=== PATIENT | female | born 1955 | race Caucasian/White ===

== ENCOUNTER 2024-09-15 06:14 | Observation (INO) ==
--- NOTE | 2024-08-14 10:45 | PAT Medication Instructions ---
Medication Instructions Date of Service August 14, 2024 Home Medications Medication Instructions Recorded Katey Crocker #1 ea 07/10/24 Medication List: calcium 600 mg (as carbonate)-vitamin D3 10 mcg (400 unit) tablet (Calcium 600 + D(3)) 1 tab PO QAM cetirizine 5 mg tablet 5 mg PO QAM coQ10 (ubiquinol) 200 mg capsule 200 mg PO QAM diclofenac sodium 75 mg tablet,delayed release 75 mg PO BID diphenhydramine HCl 25 mg capsule (Benadryl) 25 mg PO HS fluticasone propionate 50 mcg/actuation nasal spray,suspension 1 spray intranasal HS glucosamine sulf dipot chlr,msm,chond 550 mg-C 30 mg-casa 1 mg capsule (Glucosamine Chondroitin) 1 cap PO BID lisinopril 5 mg tablet 5 mg PO QAM mirabegron 25 mg tablet,extended release 24 hr 25 mg PO QAM multivitamin 1 tab PO QAM omeprazole 20 mg tablet,delayed release 20 mg PO HS potassium chloride 10 mEq tablet,extended release 10 meq PO QAM psyllium husk 0.52 gram capsule 0.52 g PO Q OTHER DAY triamterene 75 mg-hydrochlorothiazide 50 mg tablet 1 tab PO QAM vit C 250 mg-vit E 90 mg-zinc 40 mg-copper 1 [id number]-vxmaph capsule (PreserVision AREDS-2) 1 tab PO BID MEDICATION INSTRUCTIONS: ASK your surgeon for instructions diclofenac sodium 75 mg tablet,delayed release 75 mg PO BID STOP taking 2 weeks before surgery glucosamine sulf dipot chlr,msm,chond 550 mg-C 30 mg-casa 1 mg capsule (Glucosamine Chondroitin) 1 cap PO BID coQ10 (ubiquinol) 200 mg capsule 200 mg PO QAM vit C 250 mg-vit E 90 mg-zinc 40 mg-copper 1 [id number] capsule (PreserVision AREDS-2) 1 tab PO BID DO NOT take the morning of surgery potassium chloride 10 mEq tablet,extended release 10 meq PO QAM psyllium husk 0.52 gram capsule 0.52 g PO Q OTHER DAY triamterene 75 mg-hydrochlorothiazide 50 mg tablet 1 tab PO QAM lisinopril 5 mg tablet 5 mg PO QAM calcium 600 mg (as carbonate)-vitamin D3 10 mcg (400 unit) tablet (Calcium 600 + D(3)) 1 tab PO QAM cetirizine 5 mg tablet 5 mg PO QAM mirabegron 25 mg tablet,extended release 24 hr 25 mg PO QAM multivitamin 1 tab PO QAM Take evening before surgery diphenhydramine HCl 25 mg capsule (Benadryl) 25 mg PO HS fluticasone propionate 50 mcg/actuation nasal spray,suspension 1 spray intranasal HS omeprazole 20 mg tablet,delayed release 20 mg PO HS Other Notes Remember: NOTHING TO EAT OR DRINK AFTER MIDNIGHT If you have any questions please call us at [phone] or [phone] or [phone] or [phone]
--- NOTE | 2024-08-25 10:35 | Anesthesiology Consultation ---
Date of Service August 25, 2024 Assessment & Plan (1) Encounter for pre-operative examination: - Infectious disease screening: Per assessment on 08/25/24- No known recent infectious disease contacts. Patient had influenza A 06/2024. Symptoms resolved and patient currently feeling well. - Outpatient joint assessment: Pt currently scheduled for inpatient pathway. If surgeon requests review for outpatient joint pathway, patient is not recommended candidate for outpatient joint program from anesthesia standpoint based on available information. Chart Review Chart Review: Acceptable Risk for Surgery and Patient seen in Pre Admission Testing Teaching & Discussion Pre-Anesthesia Teaching/Discussion Notes: Instructed NPO after midnight before surgery,except medications with 15 cc of water. Medication instructions provided according to the PAT guidelines. History Surgery Operation Date: 09/15/24 10:40 Proposed Procedures p Left Total Knee Arthroplasty - Yandel Menezes MD Height/Weight Height: 5 ft 1 in Weight: 117.6 kg Allergies Allergy/AdvReac Type Severity Reaction Status Date / Time No Known Drug Allergies Allergy Verified 08/12/24 11:17 Medications Home Medications Medication Instructions Recorded Confirmed Last Taken Wheeled Walker #1 ea 07/10/24 07/10/24 Unknown calcium 600 mg (as 1 tab PO [facility] 08/12/24 08/12/24 Unknown carbonate)-vitamin D3 10 mcg (400 unit) tablet (Calcium 600 + D(3)) cetirizine 5 mg tablet 5 mg PO [facility] 08/12/24 08/12/24 Unknown coQ10 (ubiquinol) 200 mg capsule 200 mg PO [facility] 08/12/24 08/12/24 Unknown diclofenac sodium 75 mg 75 mg PO BID 08/12/24 08/12/24 Unknown tablet,delayed release diphenhydramine HCl 25 mg capsule 25 mg PO 08/12/24 08/12/24 Unknown (Benadryl) fluticasone propionate 50 1 spray intranasal 08/12/24 08/12/24 Unknown mcg/actuation nasal spray,suspension glucosamine sulf dipot 1 cap PO BID 08/12/24 08/12/24 Unknown chlr,msm,chond 550 mg-C 30 mg-casa 1 mg capsule (Glucosamine Chondroitin) lisinopril 5 mg tablet 5 mg PO QAM 08/12/24 08/12/24 Unknown mirabegron 25 mg tablet,extended 25 mg PO QA 08/12/24 08/12/24 Unknown release 24 hr multivitamin 1 tab PO QAM 08/12/24 08/12/24 Unknown omeprazole 20 mg tablet,delayed 20 mg PO HS 08/12/24 08/12/24 Unknown release potassium chloride 10 mEq 10 meq PO QAM 08/12/24 08/12/24 Unknown tablet,extended release psyllium husk 0.52 gram capsule 0.52 g PO Q OTHER DAY 08/12/24 08/12/24 Unknown triamterene 75 1 tab PO QAM 08/12/24 08/12/24 Unknown mg-hydrochlorothiazide 50 mg tablet vit C 250 mg-vit E 90 mg-zinc 40 1 tab PO BID 08/12/24 08/12/24 Unknown mg-copper 1 xg-tqnrbh-bftdhz capsule (PreserVision AREDS-2) Past Medical History Medical History Acid reflux Degenerative arthritis of knee Degenerative disc disease Hiatal hernia History of anxiety Hypertension Macular degeneration Morbid obesity Sleep apnea CPAP (compliant) Urinary frequency Exercise / Class Metabolic Activity III < 4 Walking/Shop/Light housework Past Family History Family History Other No family history of adverse response to anesthesia Past Surgical History Surgical History History of appendectomy History of arthroscopy of right knee History of bilateral cataract extraction History of carpal tunnel surgery of left wrist History of section x2 History of cholecystectomy History of colonoscopy History of partial hysterectomy History of tooth extraction Past Anesthesia History No Hx of Anesthesia Complications and No Family Hx of Anesthesia Complications History of PONV No Hx of PONV and No Hx of Motion Sickness Social History Smoking Status: Never smoker Do You Dip or Chew Tobacco: No Hx Alcohol Use: No Hx Substance Use: No substance use type: does not use Review of Systems Patient denies chest pain, shortness of breath, fever, chills, cough, wheezing, palpitations. Physical Exam Vital Signs BP 116/80 P 86 TEMP 98.4 SP02 97%RA RESP 16 Physical Full cervical extension range of motion. Full TMJ range of motion. TMD > 3.5 finger breaths Mallampati Score II Dentition: lower partial Lungs: clear throughout to auscultation Cardiac: regular rate and rhythm, no murmurs noted Spine: normal Carotid arteries: negative bruit Extremities: no LE edema Lab Results Anesthesia Preop Results Results Anesthesia Widget: PT 10.4 Seconds (9.0-12.0) 08/25/24 PTT 24 Seconds (21-31) 08/25/24 INR 1.0 (0.9-1.1) 08/25/24 Blood Type A Positive 08/25/24 Antibody Screen NEGATIVE 08/25/24 Testing Laboratory Results 08/18/24 WBC 6.48 H/H 12.8/41.2 PLATELETS 253 TSH 3.66 MAGNESIUM 2.2 SODIUM 143 POTASSIUM 4.4 CHLORIDE 104 CO2 28 BUN 31 CREATININE 0.7 GLUCOSE 96 Electrocardiogram Date: 08/25/24 NSR at 81bpm. Low voltage QRS. PRWP, consider anterior [place] vs lead placement vs LVH. Chest X-Ray Date: 08/25/24 FINDINGS: Heart size and pulmonary vasculature are normal. No effusion or consolidation. IMPRESSION: No acute findings.
--- NOTE | 2024-09-13 09:38 | History & Physical Report ---
Date of Service September 13, 2024 Assessment & Plan (1) Degenerative arthritis of knee, bilateral: 69-year-old female with advanced bilateral knee DJD windswept knees. The left side is more symptomatic than the right. She got terrible disease. She has tried to lose weight with some success but had difficulty due to her limited mobility. Severe right leg proceed with knee replacement. Plan when to take her the option to the left total knee replacement. The risks Mente this procedure explained and she understands. Informed consent is obtained. He has a pretty significant valgus deformity to his knee is at increased risk for peroneal nerve palsy. Will do all we can to prevent that. Will likely use a short cemented stem and may need a PS plus insert due to her MCL laxity. Will plan on using aspirin for DVT prophylaxis. She is planned be discharged to home with [facility] program. History of Present Illness Chief Complaint: . Bilateral knee pain discomfort left side greater than the right. Primary Care Provider: NO PCP . The patient is a 69-year-old female from [place] who presents specifically for surgical treatment of her knees. She has a 5+ year history of increasing bilateral knee pain discomfort which becomes become more debilitating over time. She has attempted weight loss and lost about 50 pounds over the past couple years but still could not find somebody to do surgery on her knees. Pains become more debilitating. The left knee is worse than the right. She has trouble walking any longer than a block due to the pain. She would like to have her knees fixed. She does have a history of knee arthroscopy done by Dr. Tam on this left knee 10 years ago. Allergies Allergy/AdvReac Type Severity Reaction Status Date / Time No Known Drug Allergies Allergy Verified 08/12/24 11:17 Home Medications Medication Instructions Recorded Confirmed Type Wheeled Walker #1 ea 07/10/24 07/10/24 Rx calcium 600 mg (as 1 tab PO QAM 08/12/24 08/12/24 History carbonate)-vitamin D3 10 mcg (400 unit) tablet (Calcium 600 + D(3)) cetirizine 5 mg tablet 5 mg PO QAM 08/12/24 08/12/24 History coQ10 (ubiquinol) 200 mg capsule 200 mg PO QAM 08/12/24 08/12/24 History diclofenac sodium 75 mg 75 mg PO BID 08/12/24 08/12/24 History tablet,delayed release diphenhydramine HCl 25 mg capsule 25 mg PO HS 08/12/24 08/12/24 History (Benadryl) fluticasone propionate 50 1 spray intranasal HS 08/12/24 08/12/24 History mcg/actuation nasal spray,suspension glucosamine sulf dipot 1 cap PO BID 08/12/24 08/12/24 History chlr,msm,chond 550 mg-C 30 mg-casa 1 mg capsule (Glucosamine Chondroitin) lisinopril 5 mg tablet 5 mg PO QAM 08/12/24 08/12/24 History mirabegron 25 mg tablet,extended 25 mg PO QAM 08/12/24 08/12/24 History release 24 hr multivitamin 1 tab PO QAM 08/12/24 08/12/24 History omeprazole 20 mg tablet,delayed 20 mg PO HS 08/12/24 08/12/24 History release potassium chloride 10 mEq 10 meq PO QAM 08/12/24 08/12/24 History tablet,extended release psyllium husk 0.52 gram capsule 0.52 g PO Q OTHER DAY 08/12/24 08/12/24 History triamterene 75 1 tab PO QAM 08/12/24 08/12/24 History mg-hydrochlorothiazide 50 mg tablet vit C 250 mg-vit E 90 mg-zinc 40 1 tab PO BID 08/12/24 08/12/24 History mg-copper 1 is-kliulm-rmapgw capsule (PreserVision AREDS-2) Past Med/Surg History Problem List Encounter for pre-operative examination Degenerative arthritis of knee, bilateral Medical History Morbid obesity Hiatal hernia Degenerative arthritis of knee Degenerative disc disease Urinary frequency Acid reflux Macular degeneration History of anxiety Hypertension Sleep apnea CPAP (compliant) Surgical History History of section x2 History of carpal tunnel surgery of left wrist History of arthroscopy of right knee History of colonoscopy History of partial hysterectomy History of appendectomy History of cholecystectomy History of tooth extraction History of bilateral cataract extraction Family History Other No family history of adverse response to anesthesia Social History Smoking Status: Never smoker Second Hand Exposure: No; Do You Dip or Chew Tobacco: No; Tobacco Cessation Education Requested by Patient: No Hx Alcohol Use: No Hx Substance Use: No Preferred Language: [place]se Communication Ability: Effective First Officer And Flight Instructor Required: No Beliefs That Will Affect Care: None Current Living Situation: Spouse Other Information That Helps Us Care for You: No Feels Safe at Home: Yes Safety Concerns: Feels Safe At This Time Assistive Devices: CPAP, Denture - Lower, Glasses and Walker Assistive Devices Comment: partial lower denture Review of Systems All systems reviewed & are unremarkable except as noted in HPI & below. Physical Exam . Physical examination was pleasant to moderately obese female looks to be in reasonably good health. Examination of both knees reveal patient to ambulates with severe valgus deformity to her left knee. This left knee goes into more valgus with weightbearing. Her range of motion is about 10 degrees short of full extension to 110 degrees of flexion on the side. No particular pain with hip motion. She is neurologically intact. Examination the right knee reveals fairly neutral alignment. She is tender the medial joint line. Small knee effusion. Range of motion is 5-1 20. No instability. Constitutional WD/WN, vitals as above Respiratory normal respiratory effort, lungs clear to auscultation Cardiovascular RRR, no murmur, no edema Gastrointestinal (Abdomen) normal bowel sounds, soft, nontender, no hepatosplenomegaly Musculoskeletal no cyanosis or clubbing, extremities motor strength 5/5 Results & Data Results & Data Laboratory Results . Diagnostic Findings . PG Care Time/CCT Total # of Minutes Spent Total Time Spent with Patient: Total time spent is greater than 50% in coordination of care (as documented) at patient's floor/unit and/or counseling patient: Coding Level of Care Code None Diagnoses Degenerative arthritis of knee, bilateral M17.0
[2024-09-15] MEDS ORDERED: BUPIVACAINE 0.5 % 5 MG/1 ML PF 10ML VIAL ONE (06:39)
[2024-09-15] MEDS ORDERED: BUPIVACAINE 0.25% PF 30 ML VIAL ONE (06:40)
--- NOTE | 2024-09-15 06:45 | History & Physical Bridge Note ---
Date of Service September 15, 2024 History & Physical Bridge Note I have examined the patient, reviewed the History & Physical and in the interval since the performance of the History & Physical I have noted the following changes of clinical significance: no changes noted
[2024-09-15] MEDS: ACETAMINOPHEN 500 MG TAB PO SCH ×2 (06:55→14:22)
[2024-09-15] MEDS: FAMOTIDINE 20 MG TAB PO SCH (06:55)
[2024-09-15] MEDS: METOCLOPRAMIDE HCL 10 MG TABLET PO SCH (06:55)
[2024-09-15] MEDS: LR 60ML/HR IV SCH (06:55)
[2024-09-15] MEDS: CeleBREX 200 MG CAP PO SCH (06:55)
[2024-09-15] MEDS: dexAMETHasone**PF** 10 MG/ML VIAL IV SCH (07:05)
[2024-09-15] MEDS: LR 500ML BOLUS, THEN 15ML/HR IV SCH (07:05)
[2024-09-15] MEDS ORDERED: DexMEDEtomidine HCL IV 100 MCG/ML VIAL IV ONE (07:36)
[2024-09-15] MEDS ORDERED: MIDAZOLAM HCL 1 MG/ML 2ML VIAL ONE (07:36)
[2024-09-15] MEDS ORDERED: ONDANSETRON INJ 2 MG/ML 2 ML VIAL ONE (07:36)
[2024-09-15] MEDS ORDERED: LIDOCAINE 2% 2 ML VIAL/AMP(20MG/ML) INFIL ONE (07:36)
[2024-09-15] MEDS ORDERED: KETAMINE HCL 10MG/ML SYR ONE (07:36)
[2024-09-15] MEDS ORDERED: PROPOFOL IV EMULSION 10 MG/ML 20 ML VIAL IV ONE ×2 (07:36→08:15)
[2024-09-15] MEDS ORDERED: ONDANSETRON INJ 2 MG/ML 2 ML VIAL IV PRN ×2 (08:32→12:54)
[2024-09-15] MEDS ORDERED: ePHEDrine sulfate 50 MG/ML AMP IV PRN (08:32)
[2024-09-15] MEDS ORDERED: ATROPINE SULFATE 0.1 MG/ML 10ML SYR IV PRN (08:32)
[2024-09-15] MEDS ORDERED: ROCURONIUM BROMIDE 10 MG/ML 5 ML VIAL IV ONE (09:32)
[2024-09-15] MEDS: ceFAZolin 2000MG 2,000 MG/15 ML SYR IV SCH ×2 (09:33→17:09)
[2024-09-15] MEDS ORDERED: fentaNYL citrate PF 100 MCG/2 ML VIAL ONE ×2 (09:34→10:17)
[2024-09-15] MEDS: ROPIV 0.5% 246mg, Ketorolac 30mg, EPINEPHrine 0.5mg in NSS INFIL SCH (10:14)
[2024-09-15] MEDS: ORTHO JOINT ANESTHETIC ONE (10:15)
[2024-09-15] MEDS: VANCOMYCIN HCL 1000MG/20ML VIAL ONE (10:15)
[2024-09-15] MEDS: TRANEXAMIC ACID 1,000 MG **IV Intra-op IV SCH (10:33)
[2024-09-15] MEDS ORDERED: NEOSTIGMINE METHYLSULFATE 1 MG/ML 10ML VIAL ONE (10:50)
[2024-09-15] MEDS ORDERED: GLYCOPYRROLATE 0.2 MG/ML VIAL ONE (10:50)
--- NOTE | 2024-09-15 11:36 | Operative Report ---
PG Post Operative Report Pre & Post Diagnosis Operation Date: 09/15/24 08:50 Pre-Op Diagnosis: Left Knee Osteoarthritis Post-Op Diagnosis: Left Knee Osteoarthritis I identified the patient and participated in the time-out.: Yes Procedure Operation Date: 09/15/24 08:50 Actual Procedures p Left Total Knee Arthroplasty(Left) - Yandel Menezes MD Surgeon Yandel Menezes MD Saturation Equipment Operator Malik Johnson PA-C Estimated Blood Loss 50 Findings Consistent with Post-Op Diagnosis Operative findings were advanced left knee DJD. She had extensive grade 4 [id number] disease particularly in the lateral compartment. She also has advanced patellofemoral disease. She had multiple loose bodies and multiple large osteophytes around the patella and lateral aspect of her knee. Large soft tissue envelope. Specimens Left knee sent for pathology. Anesthesia Type General Regional Complications none Disposition Accompanied Patient To Recovery: No Indications Patient is a 69-year-old female whose had a long history of gradual progressive left knee pain discomfort and deformity. She has been through extensive conservative treatment which became less successful over time. She became markedly debilitated by her knee pain discomfort and instability. X-rays show advanced knee DJD with multiple loose bodies and osteophyte formation. She elected proceed with total knee arthroplasty. Description of Procedure Operative implants consist of: 1 Biomet Vanguard size 62.5 left posterior stabilized femoral component. 2. Biomet size 67 tibial tray with a 10 mm x 80 mm cemented extension. 3. 12 mm PS plus polyethylene insert. 4. 31 x 8 all poly patella. The patient was taken the op room, identified, placed on the operating table in the supine position. All conductors were appropriately padded. IV antibiotics fibra anesthesia team. A spinal anesthetic and adductor canal block had been attempted in the holding area. The spinal was unsuccessful. A general anesth etic was therefore implemented. A Aggarwal catheter was placed in sterile fashion. A left thigh tent was then placed. The left lower extremity was then prepped and draped in the usual sterile fashion. The left leg was elevated and exsanguinated with use of an Esmarch and a turn was placed at 300 mmHg. An anterior approach left knee was then performed to longitudinal incision centered over the patella. Sharp dissection Through subcutaneous tissue down the extensor mechanism. A medial parapatellar arthrotomy incision was made. Some subperiosteal dissection was carried out medially. The fat pad was dissected from Neath patella tendon. Lateral patellofemoral ligament was released. Patella subluxated laterally and the knee was flexed. The osteophytes taken off distal femur. The ACL and PCL released from distal femur the tibia subluxated anteriorly. The external treatment LYMErix was then placed on the anterior face the tibia and adjusted 12 mm medially. Proximal tibial cut was made remove about 3 to 4 mm of bone from medial side. This cut almost essentially flush with the most efficient aspect of the posterior lateral tibial plateau. The tibia sized to a size 67. The tibia was then prepared with a drill and the stem punch. I then hand reamed up to a size 12 for the longer cemented stem. We elect to place a cemented stem due to her osteopenia, severe deformity, medial laxity. The trial stem was assembled and implemented and placed and fit nicely. Attention drawn the femur. The distal femur examined the sharp drill. Intramedullary canal was suction. A left 5 degree valgus cutting guide was placed through the distal femoral cutting block was pinned in place. This femoral cut was made to take an additional 3 mm of bone off distal femur. The femur was then sized to a size 62.5. The AP cutting block was pinned parallel to the epicondylar axis which was 6 degrees of external rotation. The anterior cut, anterior chamfer, posterior cut, posterior chamfer cuts were made. The box cutting guide was placed with just slight lateral and the box cut was made. The knee was flexed. The remnants of the medial and lateral menisci were excised. The osteophytes taken off the posterior aspect of femur. I did have to release the popliteus in order to equalize the flexion gap. The knee was then trialed and the 12 mm insert fit most appropriately. I did elect to place a PS plus insert due to her MCL laxity although her knee was quite stable after releases. Attention then drawn the patella. The patella was cleaned of all soft tissue. Patella thickness measured about 20 mm in thickness was cut down to 12. Was sized to a size 31 patella. The lug holes were drilled for 31 patella. Lateral osteophytes removed. Patella button was placed. Knee was taken through range of motion and the patella tracked nicely with no thumbs test. Attention was then drawn toward placement permanent components. All trial components were removed. Bone plug was placed into this femur limit blood loss. Double batch Palacos G cement was mixed. I did add an additional gram of vancomycin to 2 her cement due to her morbid obesity and multiple medical issues. A Biomet Vanguard size 62.5 left posterior Byce femoral component, size 67 tibial tray with an 80 mm x 10 mm extension, a 12 mm PS plus insert, and a 31 x 8 all poly patella then cemented in place. The knee was brought out in full extension till cement hardened. Final cement check was then performed. The pericapsular tissues were injected with total of 100 cc of Ortho mix. Patient did receive 1 g tranexamic acid. The tourniquet was let down for final tourniquet time of 60 minutes. Hemostasis surges electrocautery. Extensor Meclomen closed with combination 1 PDS suture and 1 Vicryl suture in a [id number]-[id number] fashion. Extensor Meclomen checked found be intact and subcutaneous tissue was then closed with 2 Dexon suture in a buried interrupted fashion skin was closed skin rosalee. Leg was then cleaned and dried and sterile dressed with Xeroform, 4 fours, sterile cast padding, Vinny bandage were applied. Patient then transferred to the recovery room in stable condition. Patient tolerated procedure well and there were no complications. Malik Johnson, my physician assistant store director, was present for the entire procedure. His assistance was essential and required for appropriate patient positioning, prepping and draping, surgical exposure, performing the technical details of the operation, placement the implants, closure of the wound, and placement of the sterile bandage. I attest to the content of the Intraoperative Record and any orders documented therein. Any exceptions are noted below.
--- NOTE | 2024-09-15 11:51 | XRay Report ---
XR knee LT 1 or 2V routine CLINICAL HISTORY: Surgical Post Op COMPARISON: 07/10/2024 FINDINGS: Left knee prosthesis shows no hardware complication. There is expected soft tissue gas. Sk in rosalee are present. IMPRESSION: Unremarkable postoperative exam. ACT 112: Negative or not required by law. Electronically signed by: Carlos Campos M.D. 09/15/2024 11:49 AM
[2024-09-15] MEDS: fentaNYL citrate PF 100 MCG/2 ML VIAL IV PRN (12:02)
[2024-09-15] MEDS ORDERED: bisacodyL 10 MG SUPP PR PRN (12:54)
[2024-09-15] MEDS ORDERED: HYDROmorphone INJ 0.5 MG/0.5 ML SYR IV PRN (12:54)
[2024-09-15] MEDS ORDERED: METOCLOPRAMIDE HCL INJ 5 MG/ML 2 ML VIAL IV PRN (12:54)
[2024-09-15] MEDS ORDERED: MAGNESIUM HYDROXIDE SUSP 30 ML UDC PO PRN (12:54)
[2024-09-15] MEDS ORDERED: NALOXONE HCL 0.4 MG/1 ML VIAL/CARP IV PRN (12:54)
[2024-09-15] MEDS ORDERED: ALUMINUM/MAGNESIUM SUSP 30 ML UDC PO PRN (12:54)
[2024-09-15] MEDS: KETOROLAC TROMETHAMINE 15 MG/ML VIAL IV SCH (13:31)
--- NOTE | 2024-09-15 13:58 | Anesthesiology Progress Note ---
Date of Service September 15, 2024 Anesthesia Post Procedure Vital Signs Vital Signs: Temp Pulse Pulse Resp BP BP Pulse Ox 09/15/24 13:30 36.9 C 65 16 95 09/15/24 13:08 36.8 C 68 16 106/68 95 09/15/24 12:54 36.8 C 68 16 106/68 95 09/15/24 12:35 81 15 117/59 L 97 09/15/24 12:25 36.7 C 66 14 111/52 L 95 09/15/24 12:15 60 12 109/52 L 95 09/15/24 12:05 65 12 115/53 L 96 09/15/24 11:55 75 16 118/64 95 09/15/24 11:45 79 14 125/66 94 09/15/24 11:36 36.7 C 87 16 121/73 93 09/15/24 06:45 09/15/24 06:45 36.6 C 88 20 142/88 H 98 O2 Del Method O2 Flow Rate 09/15/24 13:30 Room Air 09/15/24 13:08 Nasal Cannula 2 09/15/24 12:54 Nasal Cannula 2 09/15/24 12:35 Nasal Cannula 3 09/15/24 12:25 Nasal Cannula 3 09/15/24 12:15 Oxymask 3 09/15/24 12:05 Oxymask 3 09/15/24 11:55 Oxymask 3 09/15/24 11:45 Oxymask 7 09/15/24 11:36 Oxymask 7 09/15/24 06:45 Room Air 09/15/24 06:45 Room Air Pain Intensity Left Knee: Pain Intensity: 4 Transfer of Care Handoff Completed per policy Notes Mental Status: alert / awake / arousable Patient Amnestic to Procedure: Yes Nausea / Vomiting: adequately controlled Pain: adequately controlled Airway Patency, RR, SpO2: stable & adequate BP & HR: stable & adequate Hydration State: stable & adequate Anesthetic Complications: no major complications apparent and Pt Satisfied with anesthetic care
[2024-09-15] MEDS: PSYLLIUM or GUAR GUM FIBER 4GM PACKET PO SCH (14:25)
[2024-09-15] MEDS: oxyCODONE HCL IR 5 MG TAB (IMMEDIATE RELEASE) PO PRN (15:51)
[2024-09-15] MEDS: ASCORBIC ACID 500 MG TAB PO SCH (16:56)
[2024-09-15] MEDS: TRANEXAMIC ACID / 0.7% NACL 1,000 MG/100 ML BAG IV SCH (17:09)
[2024-09-15] MEDS: ASPIRIN 81 MG ECTAB PO SCH (20:13)
[2024-09-15] MEDS: PANTOprazole 40 MG TAB PO SCH (20:13)
[2024-09-15] MEDS: SENNA 8.6 MG TAB PO SCH (20:13)
[2024-09-15] MEDS: CEROVITE ADV FORMULA TAB PO SCH (20:13)
[2024-09-15] MEDS: DOCUSATE SODIUM 100 MG CAP PO SCH (20:13)
[2024-09-15] MEDS: diphenhydrAMINE Capsule 25 MG CAP PO SCH (20:13)
[2024-09-15] MEDS: FLUTICASONE PROPIONATE NA SPR 16 GM BTL NAE SCH (20:14)
[2024-09-15] MEDS ORDERED: SENNA 8.6 MG TAB PO SCH (21:00)
[2024-09-15] MEDS ORDERED: NON-FORMULARY MEDICATION (Glucos Sul 2kcl-Msm-Chond-C-Mn [Glucosamine Chondroitin] 550-30- PO SCH (21:00)
[2024-09-16 06:35] LABS: Hematocrit (blood only) 31.9 % (37.0-47.0); Mean Corpuscular Hemoglobin 30.3 pg (25.0-34.0); Mean Corpuscular Hgb Conc 34.5 g/dL (32.0-36.0); Mean Corpuscular Volume 87.9 fL (80.0-100.0); Mean Platelet Volume 10.3 fL (9.4-12.4); Platelet Count 223 K/uL (130-400); RDW Coefficient of Variation 12.6 % (11.5-14.5); RDW Standard Deviation 41.1 fL (36.4-46.3); Red Blood Count 3.63 M/uL (4.20-5.40); White Blood Count 11.34 K/ul (4.8-10.8)
[2024-09-16 06:49] LABS: BUN Creatinine Ratio 41.5 (10-20); Calcium 8.6 mg/dl (8.6-10.3); Creatinine Clr Calc Pharmacy 77.2 ml/min; Potassium 3.9 mmol/L (3.5-5.1)
[2024-09-16] MEDS: TRIAMTERENE/HCTZ 37.5/25MG TAB PO SCH (07:40)
[2024-09-16] MEDS: lisinopril 5 MG TAB PO SCH (07:40)
[2024-09-16] MEDS: dexAMETHasone 10 MG in SYRINGE 0 ML IV SCH (07:40)
[2024-09-16] MEDS: CETIRIZINE HCL 10 MG TABLET PO SCH (07:41)
[2024-09-16] MEDS: CALCIUM 600MG + VIT D 400 IU TAB PO SCH (07:41)
[2024-09-16] MEDS: VIBEGRON 75 MG TAB PO SCH (07:42)
[2024-09-16] MEDS: POTASSIUM CHLORIDE 10 MEQ TABCR PO SCH (08:39)
[2024-09-16] MEDS ORDERED: NON-FORMULARY MEDICATION (Multivitamin Tablet) PO SCH (09:00)
[2024-09-16] MEDS ORDERED: NON-FORMULARY MEDICATION (Coq10 (Ubiquinol) 200 mg Capsule) PO SCH (09:00)
[2024-09-16] MEDS ORDERED: MULTIVITAMIN TAB PO SCH (09:00)
--- NOTE | 2024-09-16 11:01 | Orthopedic Progress Note ---
Date of Service September 16, 2024 Assessment & Plan (1) Status post left knee replacement: Plan: 69-year-old female postop day 1 from left knee replacement doing pretty well. She is neurologically intact. Pains controlled. She is getting around pretty well with therapy. Plan: 1. DVT prophylaxis including thigh-high teds, SCDs, aspirin twice a day. 2. PT/OT. Weight-bear as taught. Left total knee protocol. 3. Pain control. Doing okay with current pain regimen. 4. Disposition. Plan is to discharge to home with some home health if she does okay in therapy today. Admission and Anticipated Discharge Date Admission Date: September 15, 2024 Subjective 69-year-old female postop day 1 from left knee replacement. She is doing pretty well. Pretty good night. She is working with a therapist when I visited today. No chest pain or shortness of breath. Not feeling dizzy or lightheaded. Hoping to go home today. Physical Exam Physical Exam: Physical nation was a pleasant elderly female. She was walked around the room with a walker and doing quite well. Examination left leg reveals the dressing be clean dry and intact. She can dorsiflex and plantarflex her foot appropriately. She is neurologically intact. Knee alignment looks good and anatomic. Respiratory: normal respiratory effort, lungs clear to auscultation Cardiovascular: RRR, no murmur, no edema Gastrointestinal (Abdomen): normal bowel sounds, soft, nontender, no hepatosplenomegaly Results & Data Vital Signs (Past 12 Hours) Vital Signs Temp Pulse Resp BP Pulse Ox O2 Del Method 09/16/24 07:31 36.8 C 69 16 138/78 97 Room Air 09/16/24 03:00 36.6 C 64 14 108/72 94 Room Air Laboratory Results Hemoglobin is 11.0. Hematocrit is 31.9. Electrolytes are stable.
== END 2024-09-16 12:54 | disposition home health service (06) ==
LOC: ASU 06:14 → 3E 06:14